=== PATIENT | female | born 1990 | race African-American/Black ===

== ENCOUNTER 2018-02-23 18:48 | Emergency (ER) | payer OTHER, SELFPAY ==
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
[2018-02-23] MEDS ORDERED: Ketorolac Tromethamine 60 MG/2 ML VIAL ONE (20:40)
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
== END 2018-02-23 21:27 | disposition home or self-care (01) ==
LOC: ERS 18:48
DX: M54.5 Low back pain (principal); M54.2 Cervicalgia; F17.210 Nicotine dependence, cigarettes, uncomplicated; V89.2XXA Person injured in unspecified motor-vehicle accident, traffic, initial encounter; W22.8XXA Striking against or struck by other objects, initial encounter
CPT/HCPCS: 70450; 72100; 72125; 96372; J1885

== ENCOUNTER 2019-05-23 19:45 | Emergency (ER) | payer OTHER, SELFPAY ==
[2019-05-23] MEDS ORDERED: Ketorolac Tromethamine 30 MG/ML VIAL ONE (22:21)
[2019-05-23] MEDS ORDERED: Dexamethasone 10 MG/ML VIAL ONE (22:56)
== END 2019-05-23 23:18 | disposition home or self-care (01) ==
LOC: ERS 19:45
DX: H66.91 Otitis media, unspecified, right ear (principal); F17.210 Nicotine dependence, cigarettes, uncomplicated; Z71.6 Tobacco abuse counseling
CPT/HCPCS: 87081; 87430; 87804; 96372; 99406; J1100; J1885

== ENCOUNTER 2019-10-30 17:48 | Emergency (ER) | payer SELFPAY | END 2019-10-30 18:39 | disposition home or self-care (01) | LOC: EDBD 17:48 → ERS 17:48 | DX: F10.129 Alcohol abuse with intoxication, unspecified (principal); F31.9 Bipolar disorder, unspecified; F20.9 Schizophrenia, unspecified; F17.210 Nicotine dependence, cigarettes, uncomplicated | CPT/HCPCS: 99284 ==